=== PATIENT | male | born 1980 | race Caucasian/White ===

== ENCOUNTER → 2020-05-16 | Outpatient (CLI) | payer OTHER | LOC: MHCPAIN 14:32 | DX: M47.817 Spondylosis without myelopathy or radiculopathy, lumbosacral region (principal); M47.812 Spondylosis without myelopathy or radiculopathy, cervical region; M54.5 Low back pain; M54.2 Cervicalgia; M50.90 Cervical disc disorder, unspecified, unspecified cervical region; G89.29 Other chronic pain | CPT/HCPCS: G0463 ==

== ENCOUNTER → 2020-05-18 | Outpatient (CLI) | payer OTHER | LOC: MHCPAIN 08:37 | DX: M54.12 Radiculopathy, cervical region (principal); M47.812 Spondylosis without myelopathy or radiculopathy, cervical region | CPT/HCPCS: J1100; Q9967 ==

== ENCOUNTER → 2020-05-29 | Outpatient (CLI) | payer OTHER | LOC: MHCPAIN 14:19 | DX: M47.812 Spondylosis without myelopathy or radiculopathy, cervical region (principal); M54.2 Cervicalgia; G89.29 Other chronic pain; M54.12 Radiculopathy, cervical region | CPT/HCPCS: G0463 ==